=== PATIENT | female | born 1965 | race Caucasian/White ===

== ENCOUNTER 2020-01-09 11:55 | Outpatient (CLI) | payer OTHER, SELFPAY ==
--- NOTE | ~2020-01-09 | MR_ITS ---
EXAMINATION: MR cervical spine wo/w con EXAM DATE: 01/09/2020 15:19 INDICATION: Left-sided skin paresthesia, balance impairment. TECHNIQUE: Multi-sequential, multiplanar MR images of the cervical spine were obtained without contra st. Axial T2, axial T2 MERGE sequence. Sagittal T1, T2, T2 fat saturation images also obtained. Axi al T1 weighted sequence. Patient was then injected with 20 mL Multihance intravenous contrast and re imaged. Postcontrast axial and sagittal T1-weighted fat saturation sequences were obtained. Comparis on is made to prior examination from 03/15/2018. FINDINGS: The vertebral bodies are aligned in the AP dimension. There is mild to moderate disc disea se at C5-6 and C6-7. The spinal cord signal intensity and intrinsic morphology is normal. Cervicomedu llary junction is normal in appearance. There are no suspicious marrow signal abnormalities. Paraspin al soft tissue is unremarkable. There are no areas of abnormal enhancement on the post contrast imag es. Level by level evaluation: C2-C3: Disc does not extend beyond the endplate margin. Uncovertebral joint arthropathy: None. Facet joint arthropathy: Mild bilateral. Neural foraminal stenosis: No stenosis. Central canal stenosis: No stenosis. C3-C4: Disc does not extend beyond the endplate margin. Uncovertebral joint arthropathy: Minimal bilateral. Facet joint arthropathy: Mild bilateral. Neural foraminal stenosis: Mild right. Central canal stenosis: No stenosis. C4-C5: Disc does not extend beyond the endplate margin. Uncovertebral joint arthropathy: Mild bilateral. Facet joint arthropathy: Mild bilateral. Neural foraminal stenosis: Mild right. Central canal stenosis: No stenosis. C5-C6: There is a mild diffuse disc bulge. Uncovertebral joint arthropathy: Mild to moderate bilateral. Facet joint arthropathy: Mild bilateral. Neural foraminal stenosis: Mild right. Central canal stenosis: Mild. C6-C7: There is a mild diffuse disc bulge asymmetric to the right. Uncovertebral joint arthropathy: Mild to moderate bilateral. Facet joint arthropathy: Mild bilateral. Neural foraminal stenosis: Mild bilateral. Central canal stenosis: Mild. C7-T1: Disc does not extend beyond the endplate margin. Uncovertebral joint arthropathy: Mild bilateral. Facet joint arthropathy: Mild to moderate right, mild left. Neural foraminal stenosis: Mild bilateral. Central canal stenosis: No stenosis. Compared to prior study, the disc disease has progressed and bulge at C6-7 has increased in size. IMPRESSION: 1. Mild to moderate cervical spondylosis with mild progression at C6-7. 2. Normal cord signal. Reviewed, dictated and finalized at location G.
--- NOTE | ~2020-01-09 | MR_ITS ---
EXAMINATION: MR brain/brain stem wo/w con EXAM DATE: 01/09/2020 15:12 INDICATION: Left arm paresthesia since March 2018. TECHNIQUE: Magnetic resonance imaging (MRI) of the brain/brain stem obtained without contrast. Sagit klaus T1, axial diffusion, gradient echo (T2*), T1, T2, FLAIR sequences obtained. Patient was then inj ected with 20 cc intravenous Multihance contrast. Axial and coronal postcontrast T1 weighted sequence s obtained. There is no prior study for comparison. FINDINGS: There are no areas of restricted diffusion to suggest acute infarction. There is no acute hemorrhage seen on the T2*, a hemosiderin sensitive sequence. No intraparenchymal brain mass. The ve ntricles are normal in size. There are no extra-axial collections. Flow voids are seen in the cereb ral arteries on the T2-weighted sequences consistent with their expected patency. The orbits are unr emarkable. Soft tissue is unremarkable. There are no areas of abnormal enhancement on the postcont rast images. IMPRESSION: 1. Normal brain MRI examination. Reviewed, dictated and finalized at location G.
[2020-01-09 12:36] LABS: Estimated Glomerular Filt Rate > 60
== END 2020-01-09 11:56 | disposition home or self-care (01) ==
PROVIDERS: PCP Family Medicine; Visit Provider Psychiatry & Neurology Neurology
DX: R20.2 Paresthesia of skin (principal); M47.812 Spondylosis without myelopathy or radiculopathy, cervical region
CPT/HCPCS: 70553; 72156; A9577

== ENCOUNTER 2023-11-01 08:28 | Outpatient (CLI) | payer OTHER, SELFPAY ==
--- NOTE | ~2023-11-01 | CT_ITS ---
EXAMINATION: CT orbit BI wo con DATE: 11/01/2023 08:58 INDICATION: Vertigo. Nystagmus. Chronic sinusitis. TECHNIQUE: Computed tomography (CT) of the orbits was performed without intravenous contrast. Automat ed exposure control and iterative reconstruction technique were employed. The dose-length product was 206.88 mGy-cm. COMPARISON: None FINDINGS: The optic globes, extraocular muscles, and optic nerves are normal. There is no abnormal ma ss. Bone alignment is normal. There is mucosal thickening in the paranasal sinuses, worst in the ante rior left ethmoid sinuses. The mastoid air cells are normal. IMPRESSION: 1. Normal orbits. Reviewed, dictated and finalized at location A. IMPRESSION: 1. Normal orbits.
--- NOTE | ~2023-11-01 | XR_ITS ---
EXAMINATION: XR shoulder LT min 2V DATE: 11/01/2023 08:45 INDICATION: Left shoulder pain. TECHNIQUE: 4 views of left shoulder were obtained. COMPARISON: None. FINDINGS: Bone alignment is normal. No fracture. There is mild osteoarthritis of glenohumeral joint a nd acromioclavicular joint. IMPRESSION: 1. Mild polyarticular osteoarthritis. Reviewed, dictated and finalized at location A.
== END 2023-11-01 08:29 ==
PROVIDERS: PCP Family Medicine; Visit Provider Family Medicine
DX: R42 Dizziness and giddiness (principal); H55.00 Unspecified nystagmus; J32.9 Chronic sinusitis, unspecified; M19.012 Primary osteoarthritis, left shoulder
CPT/HCPCS: 70480; 73030

== ENCOUNTER 2023-11-20 15:24 | Outpatient (CLI) | payer OTHER, SELFPAY ==
--- NOTE | ~2023-11-20 | MR_ITS ---
MRI of the brain Clinical History: Vertigo Technique: Axial and sagittal T1-weighted images were acquired. These were followed by axial T2-weigh jessica, diffusion weighted, gradient, and FLAIR images. Coronal and axial thin cut T1-weighted and T2-we ighted images were acquired through the internal auditory canals. Following intravenous administratio n of 17 cc MultiHance gadolinium, T1-weighted fat-sat imaging was performed through the brain in the axial and coronal planes. Thin cut T1-weighted postcontrast imaging was also performed through the in ternal auditory canals in the axial and coronal planes. COMPARISON: 01/09/2020 Findings: There is no acute infarct, intracranial hemorrhage, or mass lesion. No significant signal a bnormality seen in the brain parenchyma. Ventricles and subarachnoid spaces are unremarkable. Orbits are unremarkable. Paranasal sinuses and m astoids are clear. Major intracranial flow voids are intact. Sagittal midline structures are intact. No abnormal mass lesion seen of the cervical pontine angles or internal auditory canals. No abnormal postcontrast enhancement identified. IMPRESSION: No significant abnormality seen. Reviewed, dictated and finalized at location M.
== END 2023-11-20 15:25 ==
LOC: MICIMG 15:24
PROVIDERS: PCP Family Medicine; Visit Provider Family Medicine
DX: R42 Dizziness and giddiness (principal)
CPT/HCPCS: 70553; A9577

== ENCOUNTER 2024-02-19 10:31 | Outpatient (CLI) | payer OTHER, SELFPAY ==
--- NOTE | ~2024-02-19 | XR_ITS ---
EXAMINATION: XR UGI wo kub DATE: 02/19/2024 11:01 INDICATION: Gastroesophageal reflux disease TECHNIQUE: Thick barium contrast with gas effervescent crystals were administered orally. Fluoroscop ic images of the esophagus, stomach, and proximal duodenum were obtained in various projections. The reafter, overhead images of the abdomen were performed. 0.8 minutes of fluroscopy. DAP 7.9. 43 fluoro scopic images. FINDINGS: The esophagus is normal in caliber, without mucosal lesions or strictures. There is normal esophagea l peristalsis. There is no hiatal hernia. No gastroesophageal reflux witnessed during the course of the study. The gastric folds are normal. The proximal duodenum is also normal in appearance. IMPRESSION: 1. Normal upper GI study. Reviewed, dictated and finalized at location B. IMPRESSION: 1. Normal upper GI study.
== END 2024-02-19 10:32 | disposition home or self-care (01) ==
LOC: MICIMG 10:34
PROVIDERS: PCP Family Medicine; Visit Provider Family Medicine
DX: K21.9 Gastro-esophageal reflux disease without esophagitis (principal); R13.10 Dysphagia, unspecified
CPT/HCPCS: 74240